=== PATIENT | male | born 1975 | race African-American/Black ===

== ENCOUNTER 2023-04-11 00:55 | Emergency (ER) | payer MEDICAID ==
[~2023-04-11] VITALS: Ht 175.3 cm; Wt 100.0 kg
[~2023-04-11 00:55] MED LIST: ACYC200C31 PO; CLIN-194 PO
[2023-04-11 01:20] VITALS: BP 176/100; PULSE 120; RESP 20; TEMP 97; O2SAT 100
[2023-04-11] MEDS ORDERED: PREDNISONE 20MG TABLET PO STA (02:46)
[2023-04-11] MEDS ORDERED: IPRATROPIUM BROMIDE (0.02%) 0.5MG/2.5ML NEB HHN STA (02:46)
[2023-04-11] MEDS ORDERED: ALBUTEROL (0.083%) 2.5MG/3ML NEB HHN SCH (03:00)
== END 2023-04-11 06:26 ==
LOC: ER 00:55
DX: S09.90XA Unspecified injury of head, initial encounter (principal); J45.909 Unspecified asthma, uncomplicated; I10 Essential (primary) hypertension; X58.XXXA Exposure to other specified factors, initial encounter; Y93.89 Activity, other specified; Y92.89 Other specified places as the place of occurrence of the external cause; Y99.8 Other external cause status
CPT/HCPCS: 99291